=== PATIENT | female | born 1985 | race Caucasian/White ===

== ENCOUNTER 2017-01-02 23:09 | Emergency (ER) | payer BC ==
--- NOTE | ~2017-01-02 | ER ---
PATIENT'S NAME: KANU BAZAN [facility] AGE: 31 Y [address] ROOM: [place] [id number] LOCATION: [facility] ADMIT DATE: 01/02/2017 ER/Outpatient Report DISCHARGE DATE: 01/02/2017 FAMILY PHYSICIAN: Physician, Unknown ATTENDING PHYSICIAN: Alon Mello Time of Arrival: 2314 hours. Time of Evaluation: 2320 hours. CHIEF COMPLAINT: Lump of the throat. HISTORY OF PRESENT ILLNESS: The patient states that she is currently being treated for a sinus infection with Bactrim. She noticed today that she has a lump on her anterior throat neck area that she is concerned about. She says sometimes it hurts when she swallows. She did see ENT on 12/18/2016, and that is when she was diagnosed with a sinus infection and started on the Bactrim. She did do Flonase nasal spray for 2 weeks but is not currently on any kind of nose spray. She has had chills off and on. She states that she has had some issues with anxiety. She is currently nursing her 1-year-old but in the process of weaning her off. She denies having any nausea or vomiting. Denies having dental pain. ALLERGIES: ERYTHROMYCIN. CURRENT MEDICATIONS: On her chart and reviewed by me. 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 PAST SURGICAL HISTORY: Tonsils and adenoids, and cholecystectomy. SOCIAL HISTORY: She denies the use of tobacco, drugs, or alcohol. She presents to the ER tonight accompanied by her . REVIEW OF SYSTEMS: All negative other than those mentioned in the HPI. PHYSICAL EXAMINATION: VITAL SIGNS: She weighs 130.2 kg, blood pressure is 127/92, pulse is 78, respirations 18, temperature of 98.4 tympanic, O2 saturation is 98% on room PATIENT'S NAME: KANU BAZAN [facility] AGE: 31 Y [address] ROOM: [place] [id number] LOCATION: [facility] ADMIT DATE: 01/02/2017 ER/Outpatient Report DISCHARGE DATE: 01/02/2017 FAMILY PHYSICIAN: Physician, Unknown ATTENDING PHYSICIAN: Alon Mello air. GENERAL: She is awake, alert, and oriented x4. SKIN: [place], warm, and dry. RESPIRATIONS: Even and nonlabored. TMs are pearly maxwell. No distortion is noted. Nasal is boggy. Oropharynx is clear posteriorly. Mucous membranes are pink and moist. NECK: Supple. She does have a small anterior cervical node on the right side. It is movable. It is tender. No other lymph nodes are noted. LUNGS: Lung sounds are clear throughout. HEART: Regular rate and rhythm. IMPRESSION: Enlarged lymph node related to recent infection. PLAN: Discussed with the patient importance of continuing her antibiotics, following up with ENT for allergy testing as planned, and monitoring the lymph node. If symptoms change in any way, she should follow up with ENT in the next 2 to 3 days or return to the ER. She verbalized understanding. REESE DEL RIO APRN FOR MD GENEVIEVE VAZQUEZ/oswaldo /[id number] d: 01/03/17 0244 t: 01/08/17 0542, OUTPATIENT REPORT
[~2017-01-02 23:09] MED LIST: PERCOCET 5-3251 EACH PO; PRENATAL 1+1)(P1 TAB PO
== END 2017-01-02 23:41 | disposition disaster alternative care site (69) ==
LOC: GMED 23:09
DX: R59.0 Localized enlarged lymph nodes (principal); J32.9 Chronic sinusitis, unspecified; F41.9 Anxiety disorder, unspecified; D68.51 Activated protein C resistance; Z88.1 Allergy status to other antibiotic agents; Z98.890 Other specified postprocedural states